=== PATIENT | female | born 1960 | race Caucasian/White ===

== ENCOUNTER 2018-04-28 16:40 | Inpatient (IN) | payer OTHER ==
[~2018-04-28] VITALS: Ht 167.6 cm; Wt 68.9 kg
[~2018-04-28 16:40] MED LIST: METOPROLOL TART25 M1 PO; ZES5 PO; ZOC10 PO
[2018-04-28 16:46] VITALS: Ht 167.6 cm; Wt 68.9 kg
[2018-04-28 17:24] LABS: BASOPHIL % 0.4 % (0-2); PLATELET COUNT 211 x10^3mcL (130-400); RED CELL DISTRIBUTION WIDTH 12.7 % (11.5-14.5)
[2018-04-28 17:35] LABS: CALCIUM 8.5 mg/dL (8.5-10.1); CARBON DIOXIDE 26.5 mmol/L (21-32); CHLORIDE SERUM 105 mmol/L (98-107); CREATININE SERUM 0.8 mg/dL (0.6-1.0); GFR1 > 60 mL/min; GLUCOSE SERUM 97 mg/dL (74-106); POTASSIUM SERUM 3.6 mmol/L (3.5-5.1); SODIUM SERUM 139 mmol/L (136-145)
[2018-04-28 17:46] LABS: ALBUMIN 3.6 g/dL (3.4-5.0); ALKALINE PHOSPHATASE 116 U/L (46-116); ALT/SGPT 36 U/L (14-59); AMYLASE 99 U/L (25-115); AST/SGOT 23 U/L (15-37); BILIRUBIN TOTAL 0.28 mg/dL (0.20-1.00); HDL CHOLESTEROL 49 mg/dL (40-60); LIPASE 184 IU/L (73-393); T4(THYROXINE) 6.6 ug/dL (4.7-13.3); TOTAL PROTEIN, SERUM 7.4 g/dL (6.4-8.2)
[2018-04-28 17:47] LABS: CHOLESTEROL 202 mg/dL (<200)
[2018-04-28 18:29] LABS: microscopic required? YES; urine erythrocyte TRACE (NEGATIVE)
[2018-04-28 18:38] LABS: AMPHETAMINE QUAL UR NONE DETECTED (See below)
[2018-04-28 23:37] LABS: PHOSPHOROUS 3.7 mg/dL (2.5-4.9)
[2018-04-28 23:39] VITALS: BP 110/60
[2018-04-29 07:02] LABS: BASOPHIL % 0.4 % (0-2); PLATELET COUNT 185 x10^3mcL (130-400); RED CELL DISTRIBUTION WIDTH 13.1 % (11.5-14.5)
[2018-04-29 07:15] LABS: CALCIUM 8.7 mg/dL (8.5-10.1); CARBON DIOXIDE 29.3 mmol/L (21-32); CHLORIDE SERUM 108 mmol/L (98-107); CREATININE SERUM 0.8 mg/dL (0.6-1.0); GFR1 > 60 mL/min; GLUCOSE SERUM 98 mg/dL (74-106); MAGNESIUM 2.2 mg/dL (1.8-2.4); PHOSPHOROUS 4.1 mg/dL (2.5-4.9); POTASSIUM SERUM 4.4 mmol/L (3.5-5.1); SODIUM SERUM 143 mmol/L (136-145)
[2018-04-29 08:56] VITALS: BP 102/55
[2018-04-29 12:40] VITALS: BP 113/70
== END 2018-04-29 14:20 | disposition home or self-care (01) | DRG 880 ==
LOC: ED 16:40 → DU 22:25
PROVIDERS: Emergency Medicine; ADMIT Internal Medicine
DX: F41.1 Generalized anxiety disorder (principal); B69.0 Cysticercosis of central nervous system; R73.03 Prediabetes; E78.5 Hyperlipidemia, unspecified; Z68.27 Body mass index [BMI] 27.0-27.9, adult
CPT/HCPCS: 83880; J1885; Q0092